=== PATIENT | female | born 1970 | race African-American/Black ===

== ENCOUNTER → 2020-10-05 | Outpatient (CLI) | payer BC ==
[~2020-10-05] MED LIST: CHILDREN'S50 MG/1.24 PO; IBUPROFEN 200200 M1 PO; NAPROSYN500 MG PO; NOHOMEMEDICATIONS; NORCO 5-325 TA1 EACH PO; NORFLEX100 MG PO; VALTREX 500 MG500 MG PO
== END ==
LOC: BC 14:58
PROVIDERS: ATTEND Family Medicine
DX: Z12.31 Encounter for screening mammogram for malignant neoplasm of breast (principal)

== ENCOUNTER 2020-11-25 17:48 | Emergency (ER) | payer BC ==
[~2020-11-25] VITALS: Ht 165.1 cm; Wt 73.5 kg
[2020-11-25 19:03] LABS: ABSOLUTE NEUTROPHILS 2.9 thou/uL (1.4-8.2); EOSINOPHILS 2.9 % (0.0-3.0); HEMATOCRIT 31.6 % (37.0-47.0); HEMOGLOBIN 10.5 gm/dL (12.0-15.0); LYMPHOCYTES 27.9 % (24.0-44.0); MCH 31.6 pg (26.0-34.0); MCHC 33.3 g/dL (28.0-37.0); MCV 94.9 fL (80.0-100.0); MONOCYTES 12.1 % (1.0-8.0); PLATELET COUNT 282 thou/uL (150-400); POLYS 56.1 % (36.0-66.0); RBC 3.33 mil/uL (4.20-5.00); RDW 14.9 % (10.5-14.5); WBC 5.1 thou/uL (4.0-11.0)
[2020-11-25 19:08] LABS: CALCIUM 9.5 mg/dL (8.5-10.1); CREATININE 0.9 mg/dL (0.6-1.0)
[2020-11-25 19:14] LABS: ALBUMIN 3.7 g/dL (3.4-5.0); TOTAL BILIRUBIN 0.2 mg/dL (0.2-1.0); TOTAL PROTEIN 7.1 g/dL (6.4-8.2)
[2020-11-25 19:18] LABS: URINE BILIRUBIN NEGATIVE (Negative); URINE BLOOD NEGATIVE (Negative); URINE CLARITY CLEAR; URINE COLOR YELLOW; URINE GLUCOSE-RANDOM* NEGATIVE (Negative); URINE KETONES NEGATIVE (Negative); URINE LEUKOCYTES-REFLEX NEGATIVE (Negative); URINE NITRITE-REFLEX NEGATIVE (Negative); URINE PROTEIN (DIPSTICK) NEGATIVE (Negative); URINE UROBILINOGEN 0.2 E.U./dl (0.2-1.0)
[2020-11-25 20:35] VITALS: BP 127/62
== END 2020-11-25 20:42 | disposition home or self-care (01) ==
LOC: ER 17:48
PROVIDERS: Emergency Medicine Emergency Medical Services
DX: S30.1XXA Contusion of abdominal wall, initial encounter (principal); G89.18 Other acute postprocedural pain; R11.0 Nausea; Z98.890 Other specified postprocedural states; X58.XXXA Exposure to other specified factors, initial encounter; Y93.89 Activity, other specified; Y92.89 Other specified places as the place of occurrence of the external cause; Y99.8 Other external cause status

== ENCOUNTER → 2020-12-08 | Outpatient (CLI) | payer BC | END | disposition home or self-care (01) | LOC: LAB 09:59 → ULTRA 09:59 | PROVIDERS: ATTEND Surgery | DX: L76.34 Postprocedural seroma of skin and subcutaneous tissue following other procedure (principal); R10.30 Lower abdominal pain, unspecified; Z98.890 Other specified postprocedural states ==